=== PATIENT | female | born 1965 | race African-American/Black ===

== ENCOUNTER 2022-12-24 12:33 | Emergency (ER) | payer OTHER ==
[~2022-12-24] VITALS: Ht 160 cm; Wt 61.4 kg
[~2022-12-24 12:33] MED LIST: HYDR25TA PO
[2022-12-24 12:37] VITALS: BP 154/77; PULSE 70; RESP 18; TEMP 99
[2022-12-24] MEDS ORDERED: VERA120T91 PO (12:39)
[2022-12-24] MEDS ORDERED: VENL-67 PO (12:39)
[2022-12-24] MEDS ORDERED: TRIA1TAB93 PO (12:39)
[2022-12-24 13:47] LABS: COVID AG,FIA SOURCE NASAL SWAB
[2022-12-24 14:17] LABS: INFLUENZA TYPE A NEGATIVE FOR TYPE A (NEGATIVE); INFLUENZA TYPE B NEGATIVE FOR TYPE B (NEGATIVE); SARS-COV2 (COVID) ANTIGEN,FIA Negative (Negative)
[2022-12-24] MEDS ORDERED: ACET-66 PO (16:20)
[2022-12-24] MEDS ORDERED: GUAIFDM PO (16:20)
[2022-12-24] MEDS ORDERED: BENZ-227 PO (16:20)
[2022-12-24] MEDS ORDERED: ALBU18HF12 IH (16:20)
[2022-12-24] MEDS: GuaiFENesin/D-METHORPHAN [SUGAR-FREE] 200-20MG/10 ML SYRUP UDCUP PO ONE (16:22)
[2022-12-24] MEDS: ACETAMINOPHEN 500 MG TABLET PO ONE (16:23)
== END 2022-12-24 16:37 | disposition home or self-care (01) ==
LOC: EMS 12:33
DX: J20.9 Acute bronchitis, unspecified (principal); J06.9 Acute upper respiratory infection, unspecified; I10 Essential (primary) hypertension; Z20.822 Contact with and (suspected) exposure to COVID-19; Z88.8 Allergy status to other drugs, medicaments and biological substances
CPT/HCPCS: 87804; 99283